=== PATIENT | female | born 1945 | race Caucasian/White ===

== ENCOUNTER 2016-11-08 14:36 | Emergency (ER) | payer MEDICARE ==
[2016-11-08] MEDS ORDERED: HYDROmorphone 1 MG/ML SYRINGE IVP STA (15:49)
[2016-11-08] MEDS ORDERED: ONDANSETRON 4 MG/2 ML VIAL IVP STA (15:49)
[2016-11-08] MEDS ORDERED: ONDANSETRON 4 MG/2 ML VIAL ONE (15:52)
[2016-11-08] MEDS ORDERED: HYDROmorphone 1 MG/ML SYRINGE ONE (15:52)
[2016-11-08] MEDS ORDERED: LIDOCAINE-MPF 1% 5 ML VIAL ONE (17:26)
[2016-11-08] MEDS ORDERED: BUPIVACAINE 0.5%-EPI 1:200000 PF 10 ML VIAL ONE (17:43)
[2016-11-08] MEDS ORDERED: DEXAMETHASONE 10 MG/ML VIAL IVP STA (18:48)
[2016-11-08] MEDS ORDERED: CHERRY SYRUP 10 ML UDC PO ONE (18:51)
[2016-11-08] MEDS ORDERED: DEXAMETHASONE 10 MG/ML VIAL ONE (18:51)
[2016-11-08] MEDS ORDERED: ONDANSETRON ODT 4 MG TABLET TL STA (19:25)
[2016-11-08] MEDS ORDERED: ONDANSETRON ODT 4 MG TABLET ONE (19:41)
== END 2016-11-08 19:00 | disposition home or self-care (01) ==
DX: M11.211 Other chondrocalcinosis, right shoulder (principal); M75.31 Calcific tendinitis of right shoulder; M06.9 Rheumatoid arthritis, unspecified
CPT/HCPCS: 20605; 36415; 73030; 80053; 83690; 85025; 85651; 86140; 87040; 87070; 87205; 89051; 89060; 96374; 96375; 99284; 99285; A9270; J1170; Q0162